=== PATIENT | female | born 1985 | race Caucasian/White ===

== ENCOUNTER 2016-12-08 19:35 | Inpatient (IN) | payer OTHER ==
--- NOTE | 2016-12-08 22:01 | History and Physical Report ---
History of Present Illness Date of examination: 12/08/16 Date of admission: 12/08/16 19:35 Chief complaint: This is a 30 yo at weeks presented to L and D at 8p c/o leaking since 1p this afternoon. She was checked in clinic and noted to be 4cm. Patient did not arrive to unit until 8p. Per the patient and family she needed to gather things and get son hair cut. labs include A+ Antibody neg H/H 13.3/40.9---12.1/37.1 Pap normal Rubella IMM RPR NR urine culture neg hep neg HIV neg PLt 3022 HSV2 neg nl hemoglobin electrophoresis cristino neg chlam neg Quad neg US nl anatomy anteriro placenta glucose 136 RPR neg HIV neg 24 hr urine 409 mg/24 hrs uric acid 4.8 GBS neg chla neg cristino neg Past History Past Medical History: no pertinent history (PCOS) Past Surgical History: no surgical history Family/Genetic History: diabetes, heart disease, hypertension, cancer, other ( arthritis, asthma, hypercholesterolemia and thyroid ) Social history: single, alcohol abuse (some days ). denies: prescription drug abuse, IV drug use - Obstetrical History Expected Date of Delivery: 11/27/16 Actual Gestation: 41 Week(s) 4 Day(s) : 2 Para: 1 Hx # Term Pregnancies: 1 Number of Pregnancies: 0 Spontaneous Abortions: 0 Induced : 0 Number of Living Children: 1 Medications and Allergies Allergies Allergy/AdvReac Type Severity Reaction Status Date / Time No Known Allergies Allergy Unverified 12/08/16 19:37 Review of Systems All systems: negative Constitutional: weight gain Eyes: deferred Ears, nose, mouth and throat: deferred Breasts: deferred Genitourinary: deferred Rectal Exam: deferred Integumentary: deferred - Vital Signs Vital signs: Vital Signs Pulse BP Pulse Ox 82 138/74 98 12/08/16 20:35 12/08/16 20:35 12/08/16 20:35 Temp Pulse Resp BP Pulse Ox 105 H 138/74 98 12/08/16 21:52 12/08/16 20:35 12/08/16 21:52 - Physical Exam Breasts: Positive: normal Cardiovascular: Regular rate, Normal S1, Normal S2 Lungs: Positive: Clear to auscultation, Normal air movement Abdomen: Positive: normal appearance, soft, normal bowel sounds. Negative: distention, tenderness Genitourinary (Female): Positive: normal external genitalia, normal perenium Vulva: both: normal Vagina: Positive: normal moisture Uterus: Positive: normal size, normal contour Anus/Rectum: Positive: normal perianal skin Extremities: Positive: normal Deep Tendon Reflex Grade: Normal +2 - Obstetrical FHR: auscultation normal, category 1 Uterine Contraction Monitor Mode: Palpation Cervical Dilatation: 3 Cervical Effacement Percentage: 60 station: -2 Uterine Contraction Pattern: Irregular Uterine Contraction Intensity: Mild Results All other labs normal. 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
[2016-12-09] MEDS ORDERED: LACTATED RINGERS 1,000 ML ONE (00:03)
[2016-12-09] MEDS ORDERED: PITOCin/NS 20 UNIT/1000ML DRIP 1,000 ML IV ONE (01:26)
[2016-12-09] MEDS ORDERED: XYLOCAINE 2% INFILTRATI ONE ×2 (01:49→02:56)
--- NOTE | 2016-12-09 02:14 | Procedure Note ---
OB Delivery Note - Delivery Date of Delivery: 12/09/16 Surgeon: CARLINE ALEX Estimated blood loss: 300cc - Vaginal Delivery presentation: vertex Delivery position: OA Intrapartum events: PROM->1hr before delivery Delivery induction: none Delivery monitor: external FHT, external uterine Route of delivery: Delivery placenta: spontaneous Delivery cord: nuchal cord, 3 umbilical vessels Episiotomy: none Delivery laceration: 1st degree Delivery repair: vicryl Anesthesia: none - Infant A at 1 minute: 8 at 5 minutes: 9 Gender: Male (Patient was noted to be c/c/+1 and pushing pushed and delivered a viable male at 0136 with a small 1st degree repaired with a 3 -0 vicryl.the cord was delayed clamping and layed on mom chest. narse suctioned and phaynx suction. The placenta delivered intact 3 vessel at 0148. weight 7 pound and 1 ounce. 3216 gm Apgars 8 and 9. EBL 300ml Patient tolerated procedure well both baby and mom bonding.)
[2016-12-09] MEDS ORDERED: PITOCin/NS 20 UNIT/1000ML DRIP 1,000 ML IV SCH (03:00)
[2016-12-09] MEDS ORDERED: LACTATED RINGERS 1,000 ML IV SCH (03:00)
[2016-12-09] MEDS ORDERED: ZOFRAN IV PRN (05:48)
[2016-12-09] MEDS ORDERED: DERMOPLAST TP PRN (05:48)
[2016-12-09] MEDS ORDERED: PHENERGAN PO PRN (05:48)
[2016-12-09] MEDS ORDERED: TUCKS PAD TP PRN (05:48)
[2016-12-09] MEDS ORDERED: DULCOLAX PR PRN (05:48)
[2016-12-09] MEDS ORDERED: MILK OF MAGNESIA PO PRN (05:48)
[2016-12-09] MEDS ORDERED: LANSINOH TP PRN ×2 (05:48)
[2016-12-09] MEDS ORDERED: TYLENOL PO PRN (05:48)
[2016-12-09] MEDS ORDERED: BENADRYL PO PRN (05:48)
[2016-12-09] MEDS ORDERED: PHENERGAN PR PRN (05:48)
[2016-12-09] MEDS ORDERED: PITOCin/NS 30 UNIT/500ML 500 ML IV SCH (06:00)
[2016-12-09] MEDS ORDERED: SENOKOT S PO SCH (06:00)
[2016-12-09] MEDS ORDERED: SODIUM CHLORIDE FLUSH SYRINGE 10 ML IV NR (06:00)
[2016-12-09] MEDS: MOTRIN PO SCH (06:20)
[2016-12-09] MEDS ORDERED: PRENATAL VITAMIN PO SCH (10:00)
[2016-12-09 18:07] LABS: Hematocrit 37.3 % (30.3-42.9); Hemoglobin 12.4 gm/dl (10.1-14.3)
[2016-12-10] MEDS: MOTRIN PO SCH ×2 (03:59→07:24)
--- NOTE | 2016-12-10 09:34 | Progress Note ---
Assessment and Plan O: VSS AF PP H/H: pending A: Stable PP Day 1 P: D/C Routine orders D/C Subjective - Subjective Date of service: 12/10/16 Patient reports: appetite normal, voiding normally, pain well controlled, flatus , ambulating normally : doing well, nursing well Objective - Vital Signs Latest vital signs: Vital Signs Temp Pulse Resp BP 12/10/16 00:45 98.5 F 91 H 18 114/63 12/09/16 16:53 99.2 F 95 H 18 127/66 Intake and Output 12/09/16 12/10/16 12/10/16 22:59 06:59 14:59 Intake Total 840 600 Output Total 500 Balance 340 600 Intake: Oral 840 Intake, Free Water 600 Output: Urine 500 Void 500 Other: Total, Intake Amount 360 Total, Output Amount 500 # Voids Void 1 - Exam Breasts: Present: deferred Abdomen: Present: normal appearance, soft. Absent: distention, tenderness Vulva: both: normal Uterus: Present: normal, firm, fundal height below umbilicus. Absent: bogginess , tenderness Extremities: Present: normal
--- NOTE | 2016-12-10 09:37 | Discharge Summary ---
Providers - Providers Date of Admission: 12/08/16 19:35 Date of discharge: 12/10/16 Attending physician: CARLINE ALEX MD Primary care physician: CARLINE ALEX MD Hospitalization Reason for admission: active labor, IUP at term Delivery: Episiotomy: none Laceration: none Other procedures: none complications: hematoma Discharge diagnosis: IUP at term delivered [place] baby: male Condition at discharge: Good Disposition: DISCHARGED TO HOME OR SELFCARE Plan - Discharge Medications Prescriptions: Ibuprofen [Motrin 600 MG tab] 600 mg PO Q6H PRN #40 tablet PRN Reason: Pain - Provider Discharge Summary Activity: routine, no sex for 6 weeks, no heavy lifting 4 weeks, no strenuous exercise Diet: routine Instructions: routine Additional instructions: [] Smoking cessation referral if applicable(refer to patient education folder for contact #) [] Refer to [facility]'s [facility] Booklet Call your doctor immediately for: * Fever > 100.5 * Heavy vaginal bleeding ( >1 pad per hour) * Severe persistent headache * Shortness of breath * Reddened, hot, painful area to leg or breast * Drainage or odor from incision. * Keep incision clean and dry at all times and follow doctor's instructions regarding bathing/showering - Follow up plan Follow up: CARLINE ALEX MD [Primary Care Provider] - KORTNEY ORR MD [Staff Physician] - (RTO 4 weeks for visit and call to schedule infant circumcision)
[2016-12-10 15:36] VITALS: BP 126/80
== END 2016-12-10 17:45 | disposition home or self-care (01) | DRG 775 ==
LOC: LD 19:35 → OB 12-09 04:28
PROVIDERS: ADMIT Obstetrics & Gynecology; ATTEND Obstetrics & Gynecology
PROC: 10E0XZZ Delivery of Products of Conception, External Approach (ICD-10-PCS; principal; 2016-12-09)
PROC: 0HQ9XZZ Repair Perineum Skin, External Approach (ICD-10-PCS; 2016-12-09)
DX: O42.92 Full-term premature rupture of membranes, unspecified as to length of time between rupture and onset of labor (principal); O71.7 Obstetric hematoma of pelvis; O69.81X0 Labor and delivery complicated by cord around neck, without compression, not applicable or unspecified; O70.0 First degree perineal laceration during delivery; Z37.0 Single live birth; Z3A.41 41 weeks gestation of pregnancy; Z83.3 Family history of diabetes mellitus; Z82.61 Family history of arthritis; Z82.49 Family history of ischemic heart disease and other diseases of the circulatory system; Z82.5 Family history of asthma and other chronic lower respiratory diseases; Z83.42 Family history of familial hypercholesterolemia
CPT/HCPCS: 36415; 85014; 85018; 99211; A6250; G0463; J2590; J7120